=== PATIENT | female | born 1945 | race Hispanic/Latino ===

== ENCOUNTER 2019-05-06 12:02 | Observation (INO) | payer OTHER, MEDICARE ==
[~2019-05-06] VITALS: Ht 149.9 cm; Wt 69.4 kg
[2019-05-06 12:53] LABS: BASOPHILS % (AUTO) 0.1 % (0.0-5.0); MEAN CORPUSCULAR HEMOGLOBIN 29.7 pg (27.0-33.0); MEAN CORPUSCULAR HGB CONC 34.1 g/dL (32.0-36.0); MEAN CORPUSCULAR VOLUME 87.2 fL (79-99); MONOCYTES % (AUTO) 38.1 % (3.0-13.0); NEUTROPHILS % (AUTO) 27.8 % (40.0-77.0); NUCLEATED RED BLOOD CELLS 0.7 % (0.0-0.19); PLATELET COUNT (AUTO) 71 K/uL (130-400); RED BLOOD CELL COUNT(AUTO) 1.59 MIL/uL (4.00-5.50); RED CELL DISTRIBUTION WIDTH 12.5 % (11.0-15.5); WHITE BLOOD COUNT (AUTO) 3.3 K/uL (4.8-10.8)
[2019-05-06 13:01] LABS: CREATININE 3.8 mg/dL (0.5-1.5); POTASSIUM 3.3 mmol/L (3.5-5.1)
[2019-05-06] MEDS ORDERED: DEXAMETHASONE SOD PHOSPHATE 10MG/ML 1ML VIAL ONE (13:04)
[2019-05-06 13:05] LABS: BILIRUBIN,DIRECT 0.1 mg/dL (0.0-0.3); BILIRUBIN,TOTAL 0.4 mg/dL (0.2-1.0); TOTAL PROTEIN, SERUM 6.2 g/dL (6.0-8.3)
[2019-05-06] MEDS ORDERED: DiphenhydrAMINE HCL 50 MG/ML VIAL ONE (13:05)
[2019-05-06 13:10] LABS: INR 1.09 (0.85-1.15); PARTIAL THROMBOPLASTIN TIME 28.1 SEC (26.3-35.5); PROTHROMBIN TIME 11.4 SEC (9.6-11.6)
[2019-05-06 13:13] LABS: HEMATOCRIT 13.8 % (36-48)
[2019-05-06] MEDS ORDERED: GUAIFENESIN SUGAR-FREE 100 MG/5 ML UDCUP ONE (13:43)
[2019-05-06] MEDS ORDERED: SODIUM CHLORIDE 0.9% 250 ML IV ONE (14:07)
[2019-05-06] MEDS ORDERED: HYDRALAZINE HCL 20 MG/ML VIAL IV PRN (15:30)
[2019-05-06] MEDS ORDERED: ONDANSETRON HCL 4 MG/2 ML VIAL IV PRN (15:30)
[2019-05-06] MEDS ORDERED: LACTULOSE 20 GM/30 ML UDCUP PO PRN (15:30)
[2019-05-06] MEDS ORDERED: ACETAMINOPHEN 325 MG TAB PO PRN ×2 (15:30)
[2019-05-06] MEDS ORDERED: HYDRALAZINE HCL 20 MG/ML VIAL ONE (16:20)
[2019-05-06 17:55] VITALS: BP 128/58
[2019-05-06 17:59] VITALS: BP 128/58
[2019-05-06] MEDS ORDERED: CARV25TA PO (18:29)
[2019-05-06] MEDS ORDERED: LOVA10TA2 PO (18:29)
[2019-05-06] MEDS ORDERED: HYDR25TA PO (18:29)
[2019-05-06] MEDS ORDERED: AMLO10TA7 PO (18:29)
[2019-05-06] MEDS ORDERED: HYDR-4154 PO (18:29)
[2019-05-06] MEDS ORDERED: GLIP1TAB6 PO (18:29)
[2019-05-06] MEDS ORDERED: POTA10TA14 PO (18:29)
[2019-05-06] MEDS ORDERED: BENA40TA9 PO (18:29)
[2019-05-06 19:43] VITALS: BP 135/63
[2019-05-06] MEDS ORDERED: FAMOTIDINE/PF 20 MG/2 ML VIAL IV SCH (21:00)
[2019-05-06] MEDS ORDERED: GUAIFENESIN-DM 200/20 MG 10 ML ONE (21:10)
[2019-05-06 21:14] LABS: HEMATOCRIT 24.7 % (36-48)
[2019-05-07] VITALS: BP 142/58
[2019-05-07 03:29] VITALS: BP 124/50
[2019-05-07 07:00] VITALS: BP 123/48
[2019-05-07] MEDS ORDERED: FAMOTIDINE/PF 20 MG/2 ML VIAL IV SCH (09:00)
[2019-05-07] MEDS ORDERED: FAMOTIDINE 20MG TAB 20 MG TAB PO SCH (09:00)
[2019-05-07 09:26] LABS: HEMATOCRIT 22.5 % (36-48)
--- NOTE | 2019-05-07 10:13 | NUR ---
ZENA MENDOZA met with pt who states she lives alone, but her son Soham and daughter in law Rachel Garcia [phone], live on same property behind her home. Pt states she is independent, pt uses cane, no in home care services. Plan is home at ms, family to transport Addendum: 05/07/19 at 1015 by KARINA CLAY Amended: Links added.
[2019-05-07 11:00] VITALS: BP 109/42
[2019-05-07] MEDS ORDERED: GUAIFENESIN-DM 200/20 MG 10 ML PO PRN (11:45)
[2019-05-07] MEDS ORDERED: HEPARIN SODIUM/PF 100UNIT/ML 5ML SYRINGE IV SCH (12:30)
--- NOTE | 2019-05-07 12:50 | NUR ---
DISCHARGE VERBAL & WRITTEN DISCHARGE INSTRUCTIONS REVIEWED & GIVEN TO PT. QUESTIONS ENCOURAGED & CLARIFIED. PROPER CARE & MGT OF ANEMIA. PT TO CONTINUE HOME MEDICATIONS. TELE REZA REMOVED. ACCESS REMOVED FROM [facility]. HEPARIN FLUSHED PRIOR TO DC'ING. PT TO GATHER PERSONAL BELONGINGS. AWAITING FOR FAMILY TO ARRIVE TO TAKE PT HOME. PT TO NOTIFY STAFF WHEN FAMILY ARRIVES.
--- NOTE | 2019-05-07 13:55 | NUR ---
DISCHARGE FAMILY HERE TO TAKE PT HOME. PT TAKEN TO PRIVATE VEHICLE VIA WC BY Suzy ROMEO PCP, ACCOMPANIED BY FAMILY. NO DISTRESS NOTED.
== END 2019-05-07 13:55 | disposition home or self-care (01) ==
LOC: EDH 12:02 → EDHIP 15:19 → INTOOBSV 15:19 → 2DH 17:47
PROVIDERS: ADMIT Internal Medicine; ATTEND Internal Medicine
DX: D64.81 Anemia due to antineoplastic chemotherapy (principal); E11.9 Type 2 diabetes mellitus without complications; E78.2 Mixed hyperlipidemia; I10 Essential (primary) hypertension; Z85.3 Personal history of malignant neoplasm of breast; Z90.710 Acquired absence of both cervix and uterus; Z79.899 Other long term (current) drug therapy; Z79.01 Long term (current) use of anticoagulants
CPT/HCPCS: 36415 ×2; 36430; 71045; 80048; 80076; 85014 ×2; 85018 ×2; 85025; 85610; 85730; 86850; 86900; 86901; 86922 ×3; 93005; 99291; G0378 ×23; J0360; J1100; J1200; J1642; J7030; P9016 ×2